=== PATIENT | male | born 1950 | race Caucasian/White ===

== ENCOUNTER 2023-07-18 02:17 | Emergency (ER) | payer BC, MEDICAID ==
[~2023-07-18] VITALS: Ht 170.2 cm; Wt 74.8 kg
[2023-07-18] MEDS ORDERED: LIDOCAINE 1%-EPI 1:100,000 20 ML VIAL IJ ONE (04:15)
[2023-07-18] MEDS ORDERED: CEFTRIAXONE 1 G VIAL IM ONE (04:15)
[2023-07-18] MEDS ORDERED: ONDANSETRON ODT 4 MG TAB.RAPDIS SL ONE (04:15)
[2023-07-18] MEDS ORDERED: LORAZEPAM 0.5 MG TABLET PO ONE (04:15)
[2023-07-18] MEDS ORDERED: SODIUM BICARBONATE 4.2 % (NEUT) 5 ML VIAL TP ONE (04:15)
[2023-07-18] MEDS ORDERED: HYDROMORPHONE 1 MG/1 ML DISP.SYRIN IM ONE (04:15)
[2023-07-18] MEDS ORDERED: SULFAMETH/TRIMETH 800/160 MG TABLET PO ONE (04:15)
[2023-07-18] MEDS ORDERED: CEPH500T PO (04:52)
[2023-07-18] MEDS ORDERED: HYDR-3980 PO (04:52)
[2023-07-18] MEDS ORDERED: SULF1TAB48 PO (04:52)
[2023-07-18] MEDS ORDERED: CEFTRIAXONE /D5W 50ML IVPB **ER PYXIS IV ONE (05:02)
[2023-07-18] MEDS ORDERED: LIDOCAINE 1%-EPI 1:100,000 20 ML VIAL ONE (05:03)
[2023-07-18] MEDS ORDERED: LORAZEPAM 1 MG TABLET ONE (05:03)
[2023-07-18] MEDS ORDERED: SODIUM BICARBONATE 4.2 % (NEUT) 5 ML VIAL ONE (05:04)
[2023-07-18] MEDS ORDERED: SULFAMETH/TRIMETH 800/160 MG TABLET ONE (05:04)
[2023-07-18] MEDS ORDERED: ONDANSETRON HCL 4 MG TABLET ONE (05:04)
[2023-07-18] MEDS ORDERED: HYDROMORPHONE 2 MG/1 ML DISP.SYRIN ONE (05:04)
[2023-07-18 06:09] VITALS: BP 117/87; O2SAT 95
== END 2023-07-18 06:10 | disposition home or self-care (01) ==
LOC: ER 02:32
DX: L02.214 Cutaneous abscess of groin (principal); F17.200 Nicotine dependence, unspecified, uncomplicated; Z88.5 Allergy status to narcotic agent
CPT/HCPCS: 99284; 10060; 96372 ×2; J0696; J3490 ×2; J1170; A4606; A4663; Q0162